=== PATIENT | female | born 1960 | race Caucasian/White ===

== ENCOUNTER 2017-03-10 08:39 | Emergency (ER) | payer OTHER | END 2017-03-10 10:33 | disposition home or self-care (01) | LOC: FER 08:39 | DX: S40.011A Contusion of right shoulder, initial encounter (principal); S90.02XA Contusion of left ankle, initial encounter; M54.2 Cervicalgia; M25.512 Pain in left shoulder; V49.40XA Driver injured in collision with unspecified motor vehicles in traffic accident, initial encounter; Y92.410 Unspecified street and highway as the place of occurrence of the external cause | CPT/HCPCS: 71020; 73030; 73590; 99284 ==